=== PATIENT | female | born 1990 | race Caucasian/White ===

== ENCOUNTER 2022-08-23 16:40 | Emergency (ER) | payer OTHER ==
[2022-08-23 16:55] VITALS: BP 126/90; PULSE 67; RESP 18; TEMP 98.2; BMI 24.7
== END 2022-08-23 18:00 | disposition home or self-care (01) ==
LOC: JERFT 16:40
DX: R21 Rash and other nonspecific skin eruption (principal)
CPT/HCPCS: 99283-25